=== PATIENT | female | born 1965 | race Caucasian/White ===

== ENCOUNTER 2019-01-09 17:25 | Emergency (ER) | payer BC ==
--- OUTSIDE RECORDS SUMMARY | 2019-01-09 17:27 | XMS REPORT ---
:1965 Author Organization [facility] Address [address] [place] [address] Dr. Stevenson [address] [place] [address] Care Team Providers Name Role Phone Unavailable Unavailable Unavailable Problems This patient has no known problems. Allergies, Adverse Reactions, Alerts This patient has no known allergies or adverse reactions. Medications This patient has no known medications.
--- OUTSIDE RECORDS SUMMARY | 2019-01-09 17:27 | XMS REPORT | Summary of Care ---
:1965 Author Organization [facility] Address [address] [place] [id number] Care Team Providers Name Role Phone Jane Vazquez Primary Care Provider Reason for Visit Reason Comments BLOATING bloating and swelling in ankles Pain Pain on Rt Side Constipation Encounter Details Date Type Department Care Team Description 01/09/2019 Office Visit [facility] Family Dot Beverlya, APURVA Jaundice (Primary Dx); Medicine - [place] [address] [facility] Right upper quadrant abdominal pain [address] [place], [place] [address] [place], [place] [phone] [address] Allergies Active Allergy Reactions Severity Noted Date Comments Codeine Unknown - See comments 10/22/2015 Hydrocodone Unknown - See comments 10/22/2015 Sulfa (Sulfonamide Antibiotics) Unknown - See comments 10/22/2015 documented as of this encounter (statuses as of 01/09/2019) Medications No known medicationsdocumented as of this encounter (statuses as of 01/09/2019) Active Problems Problem Noted Date Essential hypertension 10/22/2015 documented as of this encounter (statuses as of 01/09/2019) Social History Tobacco Use Types Packs/Day Years Used Date Never Smoker Smokeless Tobacco: Never Used Alcohol Use Drinks/Week oz/Week Comments Yes 14 Glasses of wine 8.4 Sex Assigned at Date Recorded Not on file Job Start Date Occupation Industry Not on file Not on file Not on file Travel History Travel Start Travel End No recent travel history available. documented as of this encounter Last Filed Vital Signs Vital Sign Reading Time Taken Comments Blood Pressure 128/69 01/09/2019 4:21 PM CDT Pulse 105 01/09/2019 4:21 PM CDT Temperature 36.8 C (98.3 F) 01/09/2019 4:21 PM CDT Respiratory Rate - - Oxygen Saturation - - Inhaled Oxygen Concentration - - Weight 78 kg (172 lb) 01/09/2019 4:21 PM CDT Height 170.2 cm (5' 7") 01/09/2019 4:21 PM CDT Body Mass Index 26.94 01/09/2019 4:21 PM CDT documented in this encounter Progress Notes Jaja Beverly, APURVA - 01/09/2019 4:00 PM CDT Cc: Chief Complaint Patient presents with BLOATING bloating and swelling in ankles Pain Pain on Rt Side Constipation Rebecca Laird is a 53 year old female. It was pointed out to patient that her eye were yellow, unsure how long they have been. She has a hxof fatty liver, drinks more than 6 glasses of wine per day for years- used alcohol to cope after dianosis of rectal and colon cancer for which she has been in remission since 2012 after undergoing bothchemo and radiation. The only symptoms she has been aware of is right sided abdominal pain and itching, she attributed her itching to having eczema. Abdominal Pain Pain location: RUQ Pain quality: aching, bloating, fullness and pressure Pain radiates to: Does not radiate Pain severity: Mild Onset quality: Gradual Timing: Constant Progression: Unchanged Chronicity: Recurrent Context: alcohol use Relieved by: Nothing Worsened by: Nothing Ineffective treatments: None tried Associated symptoms comment: Jaundice/icturus Risk factors: alcohol abuse and NSAID use Risk factors comment: Hx of colon and rectal CA, in remission. also hx of fatty liver Allergies Rebecca is allergic to codeine; hydrocodone; and sulfa (sulfonamide antibiotics). Medications No outpatient medications prior to visit. No facility-administered medications prior to visit. Histories Past Medical History: Diagnosis Date Cancer colon, skin dx december 2017 (unsure which kind) Hypertension No past surgical history on file. Social History Socioeconomic History Marital status: Single Spouse name: Not on file Number of children: Not on file Years of education: Not on file Highest education level: Not on file Occupational History Not on file Social Needs Financial resource strain: Not on file Food insecurity: Worry: Not on file Inability: Not on file Transportation needs: Medical: Not on file Non-medical: Not on file Tobacco Use Smoking status: Never Smoker Smokeless tobacco: Never Used Substance and Sexual Activity Alcohol use: Yes Alcohol/week: 8.4 oz Types: 14 Glasses of wine per week Drug use: No Sexual activity: Not on file Lifestyle Physical activity: Days per week: Not on file Minutes per session: Not on file Stress: Not on file Relationships Social connections: Talks on phone: Not on file Gets together: Not on file Attends advent service: Not on file Active member of club or organization: Not on file Attends meetings of clubs or organizations: Not on file Relationship status: Not on file Intimate partner violence: Fear of current or ex partner: Not on file Emotionally abused: Not on file Physically abused: Not on file Forced sexual activity: Not on file Other Topics Concern Not on file Social History Narrative rd manager Family History Problem Relation Age of Onset Heart Father Review of Systems Constitutional: Negative. HENT: Negative. Eyes: Negative. Jaundice both eyes Respiratory: Negative. Cardiovascular: Negative. Gastrointestinal: Positive for abdominal pain. Genitourinary: Lynne colored urine Musculoskeletal: Negative. Skin: Positive for color change (jaundice). Neurological: Negative. Endocrine: Endocrine negative Vital Signs BP 128/69 (BP Location: Right arm, Patient Position: Sitting, BP CUFF SIZE: Adult Medium) | Pulse 105 | Temp 36.8 C (98.3 F) (Oral) | Ht 5' 7" ( 1.702 m) | Wt 172 lb (78 kg) | BMI 26.94 kg/m Physical Exam Constitutional: She is oriented to person, place, and time. She appears well- developed and well-nourished. No distress. HENT: Head: Normocephalic. Right Ear: External ear normal. Left Ear: External ear normal. Nose: Nose normal. Mouth/Throat: Oropharynx is clear and moist. No oropharyngeal exudate. Eyes: Pupils are equal, round, and reactive to light. Conjunctivae and EOM are normal. Scleral icterus is present. Neck: Normal range of motion. Neck supple. No JVD present. No tracheal deviation present. No thyromegaly present. Cardiovascular: Normal rate, regular rhythm, normal heart sounds and intact distal pulses. Exam reveals no gallop and no friction rub. No murmur heard. Pulmonary/Chest: Effort normal and breath sounds normal. No respiratory distress. She has no wheezes. She has no rales. She exhibits no tenderness. Abdominal: Soft. Bowel sounds are normal. She exhibits distension. She exhibits no mass. There is tenderness (right upper quadrant). There is no rebound and no guarding. Musculoskeletal: Normal range of motion. She exhibits no edema, tenderness or deformity. Lymphadenopathy: She has no cervical adenopathy. Neurological: She is alert and oriented to person, place, and time. She displays normal reflexes. Nocranial nerve deficit or sensory deficit. She exhibits normal muscle tone. Coordination normal. Skin: Skin is warm and dry. Capillary refill takes less than 2 seconds. No rash noted. She is not diaphoretic. No erythema. No pallor. Jaundiced skin Psychiatric: anxious Nursing note and vitals reviewed. Assessment/Plan 1. RUQ abdominal pain with Jaundice: suspect liver issues that may have gone undetected for sometime, due to her high risk and to prevent further delay in diagnosis and or treatment, she was referred to go to ER [facility] for further work up. ER here contacted but their CT machine is out of order. Patient to go to another ER in [place] for further eval and tx. RTC for follow up as needed. Plan of care, desired health behaviors, goals, and medication discussed with patient. Education resources provided and reviewed with AVS. Patient/guardian/family verbalized understanding & agrees to plan of care. This visit did not involve counseling and coordination that comprised more than 50% of the visit time. If applicable, the [facility] database was accessed to review any controlled substance prescription claims data. The [employer] prescription claims data in [employer] was reviewed to assess patient compliance with the medication treatment plan. documented in this encounter Plan of Treatment Health Maintenance Due Date Last Done Comments HEPATITIS C (HCV) SCREEN 1965 DTaP,Tdap,and Td Vaccines (1 1982 - Tdap) Zoster Recombinant Vaccine 2013 (SHINGRIX) (1 of 2) MAMMOGRAM 04/02/2018 04/02/2017 (Previously completed) INFLUENZA VACCINE 02/02/2019 PAP SMEAR 04/02/2020 04/02/2017 (Previously completed) COLONOSCOPY 11/13/2022 11/13/2012 (Previously completed) PNEUMOCOCCAL 0-64 YEARS Aged Out No longer eligible based COMBINED SERIES on patient's age to complete this topic documented as of this encounter Results Not on filedocumented in this encounter Visit Diagnoses Diagnosis Jaundice - Primary Jaundice, unspecified, not of Right upper quadrant abdominal pain Abdominal pain, right upper quadrant documented in this encounter Insurance Payer Benefit Plan Subscriber ID Effective Dates Phone Address Type / Group BCBS [facility] [id number] 2012-Amrita [phone] [address] PPO/POS [facility] [id number] [place] [address] documented as of this encounter
--- OUTSIDE RECORDS SUMMARY | 2019-01-09 17:27 | XMS REPORT | Summary of Care ---
:1965 Author Organization [facility] - Health Address [address] [place] [address] Care Team Providers Name Role Phone Jane Vazquez Primary Care Provider Encounter Details Date Type Department Care Team Description 01/09/2019 Orders Only [facility] Doctor Unassigned, No [address] [facility] [place] [address] [address] [place] [address] Allergies Active Allergy Reactions Severity Noted Date [...] of this encounter Last Filed Vital Signs Not on filedocumented in this encounter Plan of Treatment Health [...] this topic documented as of this encounter Procedures Procedure Name Priority Date/Time Associated Diagnosis Comments ASSIGNMENT OF BENEFITS Routine 01/09/2019 4:02 PM CDT documented in this encounter Results Not on filedocumented in this encounter Insurance Payer Benefit Plan Subscriber ID Effective Dates Phone Address Type / Group BCBS OF [employer] [facility] [id number] 2012-Amrita [phone] [address] PPO/POS [place] [id number] [place] [address] documented as of this encounter
--- OUTSIDE RECORDS SUMMARY | 2019-01-09 17:27 | XMS REPORT | Summary of Care ---
:1965 Author Organization [facility] Address [address] [place] [address] Care Team Providers Name Role Phone Jane Vazquez Primary Care Provider Reason for Visit Reason Comments BLOATING bloating and swelling in ankles Pain Pain on Rt Side Constipation Encounter Details Date Type Department Care Team Description 01/09/2019 Office Visit [facility] Family Dot Beverlya, APURVA Jaundice (Primary Dx); Medicine - [place] [address] [address] [facility] Right upper quadrant abdominal pain [address] [place] [address] [place] [phone] [address] Allergies Active Allergy Reactions Severity Noted [...] file Gets together: Not on file Attends bahai service: Not on file Active member of [...] Concern Not on file Social History Narrative account financial manager Family History Problem Relation Age of [...] she was referred to go to ER [facility] for further work up. ER here contacted but their CT machine is out of order. Patient to go to another ER in [place] for further eval and tx. RTC for follow up as needed. Plan of care, desired health behaviors, goals, and medication discussed with patient. Education resources provided and reviewed with AVS. Patient/guardian/family verbalized understanding & agrees to plan of care. This visit did not involve counseling and coordination that comprised more than 50% of the visit time. If applicable, the [facility] database was accessed to review any controlled substance prescription claims data. The [employer] prescription claims data in [employer] was reviewed to assess patient compliance with [...] Dates Phone Address Type / Group BCBS [facility] [id number] 2012-Amrita [phone] [address] PPO/POS [facility] [id number] [place] [address] documented as of this encounter
[2019-01-09 18:39] LABS: Protime INR 2.02
[2019-01-09 18:41] LABS: Absolute Lymphocytes (CBC) 1.2 K/uL (0.7-4.9); Basophils % 1.2 % (0-1.3); Hematocrit 30.9 % (36.0-45.0); Lymphocytes % 12.4 % (15.3-44.8); MPV 10.8 fL (7.6-11.3); RBC Red Blood Cell Count 2.91 M/uL (3.86-4.86)
[2019-01-09 19:13] LABS: ALT/SGPT 50 U/L (12-78); AST/SGOT 144 U/L (15-37); Albumin 2.4 g/dL (3.4-5.0); Alkaline Phosphatase 160 U/L (45-117); BUN Blood Urea Nitrogen 10 mg/dL (7-18); Bicarbonate 24 mmol/L (21-32); Bilirubin Direct 13.1 mg/dL (0-0.2); Glucose Level 82 mg/dL (74-106); Lipase 313 U/L (73-393); Platelet Estimate ADEQ; Potassium 3.2 mmol/L (3.5-5.1); Protein, Total 8.2 g/dL (6.4-8.2); Sodium Level 137 mmol/L (136-145); Urine White Blood Cell Casts OK
[2019-01-09 19:14] LABS: Blood Morphology Comment NOTED (NOT SEEN); Macrocytosis 1+; Rouleau NOTED; Target Cells 1+
[2019-01-09 19:17] LABS: Bilirubin Total 17.3 mg/dL (0.2-1.0)
--- NOTE | 2019-01-09 20:56 | RAD REPORT ---
EXAM DESCRIPTION: CT - Abdomen Pelvis W Contrast - 01/09/2019 8:40 pm CLINICAL HISTORY: Abdominal pain, right upper quadrant pain history of colon surgery, history of fat ty liver disease COMPARISON: None. TECHNIQUE: Biphasic, helical CT imaging of the abdomen and pelvis was performed following 100 ml non -ionic IV contrast. Oral contrast was given. All CT scans are performed using dose optimization technique as appropriate and may include automated exposure control or mA/KV adjustment according to patient size. FINDINGS: Small right pleural effusion with partial atelectasis of the right lower lobe. No pericard ial effusion. Liver is grossly abnormal with a nodular capsule and relative prominence of the caudate and left lobe s. Findings are consistent with cirrhosis. No focal liver lesion to suspect hepatocellular carcinoma. Splenomegaly is present. Numerous varices are seen in the upper abdomen. No portal vein thrombus. Pr ominent gallbladder wall edema is present. This is likely a secondary response to the cirrhosis rathe r than acute gallbladder disease. Correlation is needed with clinical presentation. No biliary tree d ilatation. No pancreatitis or acute pancreatic process. Symmetric renal function is seen with no hydronephrosis or suspicious renal mass. No pyelonephritis o r acute parenchymal process. Urinary bladder is contracted limiting assessment. Uterus and ovaries sh ow no suspicious findings. No adrenal abnormalities. No gastric dilatation or wall thickening. A few prominent small bowel loops are present. Rectosigmoid anastomotic site is present without acute finding at this site. There is significant irregular circu mferential wall thickening at the level of the cecum and ileocecal valve. No appendicitis findings. No free air or pneumatosis. Small amount of ascites is present. No omental thickening. No hernia, m ass or bulky lymphadenopathy. No suspicious bony findings. IMPRESSION: Irregular circumferential wall thickening of the right-side colon involving cecum and il eocecal valve region. Colon malignancy is a primary consideration. Typhlitis would also be possible g iven the general condition of the patient. Cirrhotic liver disease is present. No focal lesion to indicate hepatocellular carcinoma. Prominent circumferential wall thickening and edema of the gallbladder. This is probably a secondary response to liver disease but can be correlated with clinical presentation. No pancreatitis or biliar y tree abnormality. Small amount of ascites. Small right pleural effusion present.
--- NOTE | 2019-01-09 21:32 | EDPHYS ---
Physician Documentation [facility] Name: Elvira Laird Age: 53 yrs Sex: Female : 1965 Arrival Date: 01/09/2019 Time: 17:26 Bed 6 Private MD: Sanjay Church S ED Physician Walt Loyola HPI: 01/09 18:30 This 53 yrs old Female presents to ER via Ambulatory with complaints of kdr Abdominal Pain, Feet Swelling, Eye Problem - Yellowing. 18:31 The patient has a history of fatty liver and was put on Doxycycline about a week ago kdr for upper respiratory/sinus infection. Since then, she has had abdominal swelling and worsening jaundice. She has also had discomfort of her RUQ though it is better today. Yesterday, she was changed to a different antibiotic . Onset: The symptoms/episode began/occurred gradually, 1 week(s) ago. Severity of symptoms: At their worst the symptoms were mild moderate just prior to arrival, in the emergency department the symptoms are unchanged. The patient has not experienced similar symptoms in the past. The patient has been recently seen by a physician: the patient's primary care provider. Historical: - Allergies: 17:43 codeine sulfate; ph 17:43 hydrocodone-acetaminophen; ph 17:43 Sulfa (Sulfonamide Antibiotics); ph - Home Meds: 17:43 Zyrtec Oral [Active]; ph - PMHx: 17:43 fatty liver; ph - PSHx: 17:43 colon; ph - Immunization history:: Adult Immunizations unknown. - Social history:: Smoking status: Patient/guardian denies using tobacco, Patient uses alcohol, on a daily basis. more than 6 glasses daily. - Ebola Screening: : No symptoms or risks identified at this time. ROS: 18:31 Constitutional: Negative for fever, chills, and weight loss, Eyes: Negative for injury, kdr pain, redness, and discharge - they do have a yellow apeparance ENT: Negative for injury, pain, and discharge, Neck: Negative for injury, pain, and swelling, Cardiovascular: Negative for chest pain, palpitations, and edema, Respiratory: Negative for shortness of breath, cough, wheezing, and pleuritic chest pain, Back: Negative for injury and pain, : Negative for injury, bleeding, discharge, and swelling, MS/Extremity: Negative for injury and deformity, Skin: Negative for injury, rash, and discoloration, Neuro: Negative for headache, weakness, numbness, tingling, and seizure activity. Psych: Negative for depression, anxiety, suicide ideation, homicidal ideation, and hallucinations, Allergy/Immunology: Negative for hives, rash, and allergies, Endocrine: Negative for neck swelling, polydipsia, polyuria, polyphagia, and marked weight changes, Hematologic/Lymphatic: Negative for swollen nodes, abnormal bleeding, and unusual bruising. 18:31 Abdomen/GI: Positive for abdominal pain, nausea, Negative for vomiting, diarrhea, constipation, abdominal cramps, abdominal distension, anorexia, dysphagia, hematemesis, black/tarry stool, rectal pain, rectal bleeding, bowel incontinence. Exam: 18:31 Constitutional: This is a well developed, well nourished patient who is awake, alert, kdr and in no acute distress. Head/Face: Normocephalic, atraumatic. ENT: Nares patent. No nasal discharge, no septal abnormalities noted. Tympanic membranes are normal and external auditory canals are clear. Oropharynx with no redness, swelling, or masses, exudates, or evidence of obstruction, uvula midline. Mucous membranes moist. Neck: Trachea midline, no thyromegaly or masses palpated, and no cervical lymphadenopathy. Supple, full range of motion without nuchal rigidity, or vertebral point tenderness. No Meningismus. Chest/axilla: Normal chest wall appearance and motion. Nontender with no deformity. No lesions are appreciated. Cardiovascular: Regular rate and rhythm with a normal S1 and S2. No gallops, murmurs, or rubs. Normal PMI, no JVD. No pulse deficits. Respiratory: Lungs have equal breath sounds bilaterally, clear to auscultation and percussion. No rales, rhonchi or wheezes noted. No increased work of breathing, no retractions or nasal flaring. Back: No spinal tenderness. No costovertebral tenderness. Full range of motion. Skin: Warm, dry with normal turgor. Normal color with no rashes, no lesions, and no evidence of cellulitis. Neuro: Awake and alert, GCS 15, oriented to person, place, time, and situation. Cranial nerves II-XII grossly intact. Motor strength 5/5 in all extremities. Sensory grossly intact. Cerebellar exam normal. Normal gait. Psych: Awake, alert, with orientation to person, place and time. Behavior, mood, and affect are within normal limits. 18:31 Eyes: Periorbital structures: appear normal, Pupils: Extraocular movements: Conjunctiva: injected, Corneas: are normal, Sclera: icterus, is present. 18:31 Abdomen/GI: Inspection: distension, that is mild, obese Bowel sounds: active, Palpation: soft, nontender, mass, is not appreciated, rebound tenderness, is not appreciated. Vital Signs: 17:44 BP 153 / 105; Pulse 105; Resp 18; Temp 99.2; Pulse Ox 99% on R/A; Weight 78.02 kg; ph Height 5 ft. 2 in. (157.48 cm); Pain 2/10; 18:38 BP 132 / 63; Pulse 99; Resp 18; Pulse Ox 100% on R/A; sg 19:38 BP 136 / 71; Pulse 90; Resp 18; Pulse Ox 97% on R/A; ea 20:50 BP 120 / 64; Pulse 100; Resp 18; Pulse Ox 100% ; ea 17:44 Body Mass Index 31.46 (78.02 kg, 157.48 cm) ph MDM: 19:16 ED course: Assumed care from Dr. Cruz at shift change. 53 yo here with abdominal ps1 pain hx of fatty liver, recent doxycycline treatment. Pending labs. . 20:59 Patient medically screened. ps1 21:13 Data reviewed: vital signs, nurses notes, lab test result(s), radiologic studies, CT ps1 scan. ED course: CT findings as well as lab findings discussed with patient. Concern for typhlitis, cancer, cirrhosis, liver failure, increased INR, elevated liver enzymes and bilirubin portend to an extremely high morbidity and mortality risk to the patient. Requested and urged with the utmost concern that the patient be transferred to a facility with the capabilities to take care of her life threatening injuries. Patient is adamant that she leave AMA and go home and check herself in the morning and she can go home and sleep on it. I personally tried every way possible to convince the patient that she is extremely sick and needs medical treatment which she refused. . 01/09 18:18 Order name: Basic Metabolic Panel; Complete Time: 20:19 kdr 01/09 18:18 Order name: CBC with Diff; Complete Time: 19:17 [facility] 01/09 18:18 Order name: Creatinine for Radiology; Complete Time: 19:17 [facility] 01/09 18:18 Order name: Hepatic Function; Complete Time: 20:19 [facility] 01/09 18:18 Order name: Lipase; Complete Time: 20:19 [facility] 01/09 18:18 Order name: AMMONIA; Complete Time: 19:17 [facility] 01/09 18:18 Order name: IV Saline Lock; Complete Time: 18:37 [facility] 01/09 18:18 Order name: Labs collected and sent; Complete Time: 18:37 [facility] 01/09 18:18 Order name: PT-INR; Complete Time: 19:17 [facility] 01/09 18:45 Order name: CBC Smear Scan; Complete Time: 19:17 [facility] 01/09 20:22 Order name: CT Abd/Pelvis - IV Contrast Only; Complete Time: 20:59 ps1 Administered Medications: No medications were administered Disposition: 01/09/19 21:29 Patient has left against medical advice. Impression: Typhlitis, Colon Cancer, Liver failure, Elevated INR, Elevated Liver Enzymes, Pleural Effusion, Liver cirrhosis. - Patients states they are going to Home. - Condition is Serious. - Discharge Instructions: Colon Mass, Adult, Liver Failure. Follow up: Emergency Department; When: Upon discharge from the Emergency Department; Reason: Please return or go straight to another acute care facilty immediately upon leaving. You are really sick.. - Problem is new. - Symptoms are unchanged. Signatures: Dispatcher [employer] EDFrederick Freedman MD MD kdr Annmarie Lomax ph D, RN RNavies, Jonathon, RN RN jd3 Singer, Phillip, MD MD ps1 Corrections: (The following items were deleted from the chart) 21:35 21:29 01/09/2019 21:29 Patients has left against medical advice. Impression: Typhlitis; jd3 Colon Cancer; Liver failure; Elevated INR; Elevated Liver Enzymes; Pleural Effusion; Liver cirrhosis. Patient states they are going to Home. Condition is Serious. Follow up: Emergency Department; When: Upon discharge from the Emergency Department; Reason: Please return or go straight to another acute care facilty immediately upon leaving. You are really sick.. Problem is new. Symptoms are unchanged. ps1
--- NOTE | 2019-01-09 21:32 | ER ---
Nurse's Notes [facility] Name: Elvira Laird Age: 53 yrs Sex: Female : 1965 Arrival Date: 01/09/2019 Time: 17:26 Bed 6 Private MD: Sanjay Church S Diagnosis: Typhlitis;Colon Cancer;Liver failure;Elevated INR;Elevated Liver Enzymes;Pleural Effusion;Liver cirrhosis Presentation: 01/09 17:39 Presenting complaint: Patient states: Yellowing of eyes, abdominal bloating, RUQ pain, ph and dark urine, symptoms began approx 1 week ago, has been taking doxycycline and clindamycin for sinusitis, admits to drinking wine daily, hx of fatty liver. Transition of care: patient was not received from another setting of care. Onset of symptoms was January 09, 2019. Risk Assessment: Do you want to hurt yourself or someone else? Patient reports no desire to harm self or others. Care prior to arrival: None. 17:39 Method Of Arrival: Ambulatory ph 17:39 Acuity: EVE 2 ph 19:38 Initial Sepsis Screen: Does the patient meet any 2 criteria? No. Patient's initial ea sepsis screen is negative. Does the patient have a suspected source of infection? No. Patient's initial sepsis screen is negative. Historical: - Allergies: 17:43 codeine sulfate; ph 17:43 hydrocodone-acetaminophen; ph 17:43 Sulfa (Sulfonamide Antibiotics); ph - Home Meds: 17:43 Zyrtec Oral [Active]; ph - PMHx: 17:43 fatty liver; ph - PSHx: 17:43 colon; ph - Immunization history:: Adult Immunizations unknown. - Social history:: Smoking status: Patient/guardian denies using tobacco, Patient uses alcohol, on a daily basis. more than 6 glasses daily. - Ebola Screening: : No symptoms or risks identified at this time. Screenin:30 Abuse screen: Denies threats or abuse. Denies injuries from another. Nutritional sg screening: No deficits noted. Tuberculosis screening: No symptoms or risk factors identified. Never had TB. Fall Risk None identified. Assessment: 18:30 General: Appears in no apparent distress. well groomed, well developed, well nourished, sg Behavior is calm, cooperative, appropriate for age. Pain: Complains of pain in epigastric area Quality of pain is described as aching, heavy, Pain began gradually, 2-3 days ago. Neuro: Level of Consciousness is awake, alert, obeys commands, Oriented to person, place, time, Inner Tube Tuber Machine Operator are equal bilaterally Moves all extremities. Full function Gait is steady, Speech is normal, Facial symmetry appears normal, Pupils are PERRLA. Cardiovascular: Capillary refill is brisk in bilateral fingers Patient's skin is warm and dry. Chest pain is denied. Respiratory: Airway is patent Respiratory effort is even, unlabored, Respiratory pattern is regular, symmetrical, Breath sounds are clear. GI: Bowel sounds present X 4 quads. Guarding noted in epigastric area Hepatomegaly noted Reports. GI: Stools are reported to be loose, Last BM was January 09, 2019. Reports gaseousness, tolerance of fluids, tolerance of food. : No signs and/or symptoms were reported regarding the genitourinary system. EENT: Sclera/Cornea jaundiced. Oral mucosa is moist. Derm: Skin is jaundiced, Bruising that is dark purple, green, yellow, on left antecubital area. Musculoskeletal: Circulation, motion, and sensation intact. Range of motion: intact in all extremities, Swelling absent. 19:34 General: Appears in no apparent distress. Behavior is calm, cooperative, appropriate ea for age. Pain: Complains of pain in epigastric area. Neuro: Level of Consciousness is awake, alert, obeys commands, Oriented to person, place, time, Inner Tube Tuber Machine Operator are equal bilaterally Speech is normal. Cardiovascular: Patient's skin is warm and dry. Respiratory: Airway is patent Respiratory effort is even, unlabored, Respiratory pattern is regular, symmetrical, Breath sounds are clear bilaterally. GI: Abdomen is round distended, Bowel sounds present X 4 quads. : No signs and/or symptoms were reported regarding the genitourinary system. EENT: Sclera/Cornea yellow sclera. Derm: Skin is jaundiced. Musculoskeletal: Circulation, motion, and sensation intact. 20:50 Reassessment: Patient and/or family updated on plan of care and expected duration. Pain ea level reassessed. Returned from CT. Pt alert and oriented x 3, respirations even and unlabored, chest expansions even and symmetrical. Vital Signs: 17:44 BP 153 / 105; Pulse 105; Resp 18; Temp 99.2; Pulse Ox 99% on R/A; Weight 78.02 kg; ph Height 5 ft. 2 in. (157.48 cm); Pain 2/10; 18:38 BP 132 / 63; Pulse 99; Resp 18; Pulse Ox 100% on R/A; sg 19:38 BP 136 / 71; Pulse 90; Resp 18; Pulse Ox 97% on R/A; ea 20:50 BP 120 / 64; Pulse 100; Resp 18; Pulse Ox 100% ; ea 17:44 Body Mass Index 31.46 (78.02 kg, 157.48 cm) ph ED Course: 17:26 Patient arrived in ED. as 17:28 Sanjay Church MD is Private Physician. as 17:39 Frederick Cruz MD is Attending Physician. kdr 17:42 Triage completed. ph 17:44 Arm band placed on Patient placed in an exam room, on a stretcher. ph 18:07 Carlito Corley RN is Primary Nurse. sg 18:20 Initial lab(s) drawn, by ny, sent to lab. Inserted saline lock: 20 gauge in left sg antecubital area, using aseptic technique. Blood collected. Patient maintains SpO2 saturation greater than 95% on room air. 18:30 Patient has correct armband on for positive identification. Bed in low position. Call sv light in reach. Pulse ox on. NIBP on. 19:04 CBC Smear Scan Sent. sv 19:16 Attending Physician role handed off by Frederick Cruz MD ps1 19:16 Walt Loyola MD is Attending Physician. ps1 19:21 Notified ED physician of a critical lab result(s). Bilirubin of 17.3. jd3 20:[address] nj 20:41 CT completed. Patient tolerated procedure well. Patient moved back from CT. ct 20:45 CT Abd/Pelvis - IV Contrast Only In Process Unspecified. EDMS 21:35 No provider procedures requiring assistance completed. IV discontinued, intact, jd3 bleeding controlled, No redness/swelling at site. Pressure dressing applied. Administered Medications: No medications were administered Outcome: 21:35 AMA AMA form signed jd3 21:35 Condition: stable 21:35 Instructed on follow up and referral plans. Demonstrated understanding of follow-up care. 21:35 Patient left the ED. jd3 Signatures: Dispatcher Med[employer] Rahel Bryant, RN Carlito Mckenzie RN RN sg Rittger, Kevin, MD MD kdr Martinez, Amelia as Hall, Patricia RN RN Jose Manuel, Melvi Bella RN RN ea Davies, Jonathon, RN RN jWalt Sawant MD MD ps1 Corrections: (The following items were deleted from the chart) 20:53 20:50 Reassessment: Patient and/or family updated on plan of care and expected ea duration. Pain level reassessed. Patient is alert, oriented x 3, equal unlabored respirations, skin warm/dry/pink. Returned from CT ea
== END 2019-01-09 21:35 | disposition left against medical advice (07) ==
LOC: ER 17:25
DX: K37 Unspecified appendicitis (principal); K72.90 Hepatic failure, unspecified without coma; K76.0 Fatty (change of) liver, not elsewhere classified; R79.89 Other specified abnormal findings of blood chemistry; K74.60 Unspecified cirrhosis of liver; J90 Pleural effusion, not elsewhere classified; Z88.2 Allergy status to sulfonamides; Z88.5 Allergy status to narcotic agent; Z85.038 Personal history of other malignant neoplasm of large intestine
CPT/HCPCS: 85025; 80048; 36415; 82140; 85610; 80076; 83690; 74177; 99285; Q9967